=== PATIENT | female | born 1995 | race Caucasian/White ===

== ENCOUNTER 2022-03-19 02:44 | Inpatient (IN) | payer BC ==
[~2022-03-19] VITALS: Ht 167.6 cm; Wt 94.8 kg
[2022-03-19 02:50] VITALS: BP_SYST 137
--- NOTE | 2022-03-19 03:03 | NUR ---
Patient to ER bed 5 to gown for evaluation. Side rails up. Report given to Anna CAST.
--- NOTE | 2022-03-19 03:03 | NUR ---
ER at bedside examining patient.
--- NOTE | 2022-03-19 03:16 | NUR ---
PATIENT MOVED TO BED 1
--- NOTE | 2022-03-19 03:20 | NUR ---
Pt BIBA from home with c/o of vaginal bleeding that started around 0200. Pt is 2 months and had DNC 1 week ago. Pt saturated through 1 pad and 2 chucks on bed. Pt is A&O x4, and following commands.
[2022-03-19] MEDS ORDERED: NACL 0.9% 1,000 ML IV ONE ×3 (03:30→06:45)
--- NOTE | 2022-03-19 03:40 | NUR ---
# 20 gauge angiocath placed to RAC. Use of asceptic technique. Opsite placed over site. Blood return noted. Blood for lab drawn from site. Flushed with 10 cc of normal saline. No evidence of infiltration noted. Patient tolerated well.
--- NOTE | 2022-03-19 04:23 | NUR ---
Dr. Sheets made aware that urine dipstick results are inconclusive. Rec order for UA.
[2022-03-19 04:54] LABS: BASOPHILS # (AUTO) 0.1 K/uL (0.0-0.2); BASOPHILS % (AUTO) 0.6 % (0.0-2.0); EOSINOPHILS # (AUTO) 0.2 K/uL (0.0-0.4); EOSINOPHILS % (AUTO) 2.8 % (0.0-4.0); HEMATOCRIT 30.4 % (36-48); HEMOGLOBIN 10.1 g/dL (12.0-16.0); LYMPHOCYTES # (AUTO) 1.1 K/uL (1.0-5.5); LYMPHOCYTES % (AUTO) 13.3 % (20.5-51.5); MEAN CORPUSCULAR HEMOGLOBIN 30 pg (27-31); MEAN CORPUSCULAR HGB CONC 33 % (32-36); MEAN CORPUSCULAR VOLUME 89 fL (79.0-98.0); MONOCYTES # (AUTO) 0.5 K/uL (0.0-1.0); NEUTROPHILS # (AUTO) 6.3 K/uL (1.8-7.7); NEUTROPHILS % (AUTO) 77.3 % (40.0-70.0); PLATELET COUNT (AUTO) 206 K/uL (130-430); RED BLOOD CELL COUNT(AUTO) 3.42 MIL/uL (4.2-6.2); RED CELL DISTRIBUTION WIDTH 18.3 % (9.0-15.0); WHITE BLOOD COUNT (AUTO) 8.2 K/uL (4.8-10.8)
--- NOTE | 2022-03-19 05:05 | NUR ---
Patient swabbed for Covid 19 and swab sent to lab by BRAXTON Whitlock for analysis
--- NOTE | 2022-03-19 05:06 | NUR ---
Patient swabbed for MRSA by EMT Kamlesh and swab sent to lab for analysis
[2022-03-19 05:12] LABS: BILIRUBIN,URINE NEGATIVE (NEGATIVE); BLOOD, URINE 3+ (NEGATIVE); CLARITY/URINE CLOUDY (CLEAR); COLOR,URINE RED (YELLOW); GLUCOSE,URINE NEGATIVE (NEGATIVE); KETONES,URINE NEGATIVE (NEGATIVE); LEUKOCYTE ESTERASE ,URINE NEGATIVE (NEGATIVE); NITRITE, URINE NEGATIVE (NEGATIVE); PROTEIN URINE 3+ (NEGATIVE); UROBILINOGEN,URINE 0.2 (0.2-1.0)
[2022-03-19 05:14] LABS: CREATININE 1.03 mg/dL (0.55-1.30)
--- NOTE | 2022-03-19 05:16 | NUR ---
Pt reporting abd pain 03/14. BP 130/83. MD made aware.
[2022-03-19 05:18] LABS: ALBUMIN 3.1 g/dL (3.4-4.8); TOTAL BILIRUBIN 1.8 mg/dL (0.0-1.0)
[2022-03-19 05:20] LABS: INR 0.9 (0.8-1.2); PROTHROMBIN TIME 9.9 SECS (9.5-12.5)
[2022-03-19 05:27] LABS: BACTERIA,URINE MODERATE /HPF (None Seen); MUCUS,URINE None Seen /LPF (None Seen)
[2022-03-19] MEDS ORDERED: ONDANSETRON HCL 4 MG/2 ML VIAL IVP ONE (05:30)
[2022-03-19] MEDS ORDERED: MORPHINE 2 MG/ML INJ. SYRINGE IVP ONE (05:30)
--- NOTE | 2022-03-19 05:36 | NUR ---
MD made aware of HR drop from 90bpm to 75bpm. BP 119/67. Second bag of NS bolus hung.
--- NOTE | 2022-03-19 05:39 | NUR ---
Pt reporting some abd discomfort. Pt is A&O X4, and following commands. When asked, patient wished to not change chucks.
--- NOTE | 2022-03-19 06:07 | NUR ---
Pt passed an estimate of 5-6 softball sized blot clots. Dr. Sheets brought to bed side. No new orders rec. Pt still A&O X 4, and following commands. BP 127/76 and HR 88 BMP. Chucks and linens change for patient comfort and hygiene. Pt moved to hospital bed from [facility] for comfort.
[2022-03-19] MEDS ORDERED: ALBMDI INH (06:13)
--- NOTE | 2022-03-19 07:10 | NUR ---
Report given to Yolis CAST to assume all care.
--- NOTE | 2022-03-19 07:26 | NUR ---
RECEIVED PT FROM SERENE LLOYD. PT ADMITTED FOR VAGINAL BLEEDING. PT ACTIVELY BLEEDING AT THIS TIME. INITIAL HGB 10.1, NEWLY DRAWN HGB PENDING. PT IS AAOX4. RESP E/U. ON R/A. ABDOMEN SOFT, ROUND, NONDISTENDED, TENDER. PT HAS C/O PELVIC PAIN 09/12, REFUSED PAIN MEDICATION AT THIS TIME. SKIN WARM, INTACT, CAP REFILL , 3 SECS, NO PERIPHERAL EDEMA. IV CATH TO RAC 20 WNL, S/L. IV CATH 20 TO LAC WITH NS RUNNING AT 100ML/HOURS. SITE WNL. MOTHER AT BEDSIDE, SIDERAILS UP X2.
--- NOTE | 2022-03-19 07:51 | NUR ---
PT HAS C/O INCREASING PAIN 11/12. RECEIVED ORDER FROM DR. LO FOR NORCO 10/325MG PO Q 4 HOURS PRN. ORDER CARRIED OUT.
[2022-03-19] MEDS: HYDROcodone/ACETAMIN 10-325 MG TAB PO PRN ×2 (08:28→21:53)
--- NOTE | 2022-03-19 08:30 | NUR ---
LARGE BLOOD CLOTS: PATIENT PASSED VAGINAL BLOOD CLOTS AND MD INFORMED. Addendum: 03/20/22 at 1704 by Kiersten Steinberg RN CORRECTED ABOVE TIME: CORRECT TIME 1230PM
[2022-03-19 10:30] VITALS: BP_SYST 134
--- NOTE | 2022-03-19 10:30 | NUR ---
ADMISSION NOTE Received patient from ER via gurney. Patient admitted with diagnosis of Vaginal Bleeding. Patient is awake, alert, oriented X 3. Patient oriented to hospital room, call light, toileting, pain management and safety-teach back done. Patient informed that i will be her nurse and that their room number is 110-B. Personal belongings checked and Belongings List documented. Call light within reach.Patient's mother at the bedside.
--- NOTE | 2022-03-19 10:30 | NUR ---
Patient will be admitted to care of GASTONIA. Admitted to MEDICAL SURGICAL unit. Will go to room 110B. Belongings list completed. Complete and up to date summary report printed. SBAR report to be given at bedside with opportunity for questions.
--- NOTE | 2022-03-19 10:42 | NUR ---
RECEIVED ORDER FOR DR. LO FOR SIMETHICONE 180 MG PO BID. CALLED AND REPORTED TO SERENE ONTIVEROS THAT THE MEDICATION IS AVAILABLE.
--- NOTE | 2022-03-19 10:43 | NUR ---
DR BARNES CALLED AND SW DR BARNES RE CONSULTATION. PER HE IS AWARE AND HAS BEEN CALLED FROM THE ED. HE WOILL COME SEE PATIENT
[2022-03-19] MEDS: SIMETHICONE 80 MG TAB.CHEW PO PRN ×2 (11:11→21:51)
[2022-03-19 13:16] LABS: BASOPHILS % (AUTO) 0.4 % (0.0-2.0); LYMPHOCYTES # (AUTO) 0.6 K/uL (1.0-5.5); LYMPHOCYTES % (AUTO) 5.1 % (20.5-51.5); MEAN CORPUSCULAR HEMOGLOBIN 30 pg (27-31); MEAN CORPUSCULAR HGB CONC 33 % (32-36); MEAN CORPUSCULAR VOLUME 89 fL (79.0-98.0); MONOCYTES # (AUTO) 0.7 K/uL (0.0-1.0); MONOCYTES % (AUTO) 5.3 % (1.7-9.3); NEUTROPHILS # (AUTO) 10.9 K/uL (1.8-7.7); NEUTROPHILS % (AUTO) 89.2 % (40.0-70.0); PLATELET COUNT (AUTO) 237 K/uL (130-430); RED BLOOD CELL COUNT(AUTO) 2.15 MIL/uL (4.2-6.2); RED CELL DISTRIBUTION WIDTH 18.1 % (9.0-15.0); WHITE BLOOD COUNT (AUTO) 12.2 K/uL (4.8-10.8)
--- NOTE | 2022-03-19 13:30 | NUR ---
OB GYNE: DR BARNES DID AN INTERNAL EXAMINATION AT THE BEDSIDE AND AN EVACUATION OF LARGE BLOOD CLOTS OBTAINED. NO BLEEDING AFTERWARDS.
[2022-03-19 13:36] LABS: HEMOGLOBIN 6.3 g/dL (12.0-16.0)
[2022-03-19 13:37] LABS: HEMATOCRIT 19.2 % (36-48)
[2022-03-19 14:30] LABS: HEMOGLOBIN 10.2 g/dL (12.0-16.0); MEAN CORPUSCULAR HEMOGLOBIN 30 pg (27-31); MEAN CORPUSCULAR HGB CONC 33 % (32-36); PLATELET COUNT (AUTO) 211 K/uL (130-430); RED BLOOD CELL COUNT(AUTO) 3.38 MIL/uL (4.2-6.2); RED CELL DISTRIBUTION WIDTH 18.6 % (9.0-15.0)
[2022-03-19 14:41] LABS: MEAN CORPUSCULAR VOLUME 92 fL (79.0-98.0)
--- NOTE | 2022-03-19 14:55 | NUR ---
BT INITIATION: Consent signed per agreeing to administration of blood. Blood has been type and crossmatched. Blood sent from blood bank. Information on unit of blood checked against patient wristband at bedside by two nurses. All information matches. Patient or responsible green party informed of potential complications associated with blood transfusion. Informed of possible transfusion reaction symptoms. Aware of need to notify nurse at once of itching, shortness of breath, flushing, feeling of impending doom, or other symptoms not previously present. Vital signs taken within 5 minutes prior to initiation of transfusion. RN will remain with patient for first 15 minutes of transfusion at which time vital signs will be re-assessed.
[2022-03-19 17:20] VITALS: BP_SYST 135
--- NOTE | 2022-03-19 17:20 | NUR ---
2ND TRANSFUSION:BT INITIATION: Consent signed per pt agreeing to administration of blood. Blood has been type and crossmatched. Blood sent from blood bank. Information on unit of blood checked against patient wristband at bedside by two nurses. All information matches. Patient or responsible constitution party informed of potential complications associated with blood transfusion. Informed of possible transfusion reaction symptoms. Aware of need to notify nurse at once of itching, shortness of breath, flushing, feeling of impending doom, or other symptoms not previously present. Vital signs taken within 5 minutes prior to initiation of transfusion. RN will remain with patient for first 15 minutes of transfusion at which time vital signs will be re-assessed.
--- NOTE | 2022-03-19 19:27 | NUR ---
END OF SHIFT: 2ND UNIT OF PRBC ALMOST DONE. ENDORSED [facility] NURSE MARGE.PATIENT SLEEPING.CALL LIGHT WITH IN REACH. BED LOCKED AT LOWEST POSITION. CONTINUE TO MONITOR ACTIVE BLEEDING. STABLE.
[2022-03-19 20:00] VITALS: BP_SYST 127
--- NOTE | 2022-03-19 20:15 | NUR ---
PRBC TRANSFUSION COMPLETE. VS AT 2010: 97.6,127,20,127/82, AND 98% O2 SAT ON ROOM AIR. PT CONDITION STABLE.
[2022-03-20 00:30] VITALS: BP_SYST 128
--- NOTE | 2022-03-20 07:35 | NUR ---
MORNING ROUNDS: PATIENT AWAKE LYING ON THE BED. MOTHER AT THE BEDSIDE. IV SALINE LOCK AT BOTH AC,INTACT. CALL LIGHT WITH IN REACH. BED LOCKED AT LOWEST POSITION. NO ACTIVE BLEEDING THIS TIME.
[2022-03-20 07:56] LABS: BASOPHILS % (AUTO) 0.7 % (0.0-2.0); EOSINOPHILS # (AUTO) 0.2 K/uL (0.0-0.4); LYMPHOCYTES % (AUTO) 17.6 % (20.5-51.5); MEAN CORPUSCULAR HEMOGLOBIN 30 pg (27-31); MEAN CORPUSCULAR HGB CONC 34 % (32-36); MEAN CORPUSCULAR VOLUME 88 fL (79.0-98.0); MONOCYTES # (AUTO) 0.5 K/uL (0.0-1.0); MONOCYTES % (AUTO) 8.3 % (1.7-9.3); NEUTROPHILS % (AUTO) 70.4 % (40.0-70.0); PLATELET COUNT (AUTO) 143 K/uL (130-430); RED BLOOD CELL COUNT(AUTO) 2.21 MIL/uL (4.2-6.2); WHITE BLOOD COUNT (AUTO) 5.6 K/uL (4.8-10.8)
[2022-03-20 08:00] VITALS: BP_SYST 128
[2022-03-20 08:30] LABS: ALBUMIN 2.5 g/dL (3.4-4.8); CALCIUM 8.1 mg/dL (8.4-11.0); CREATININE 0.76 mg/dL (0.55-1.30); TOTAL BILIRUBIN 1.9 mg/dL (0.0-1.0)
[2022-03-20] MEDS: HYDROcodone/ACETAMIN 10-325 MG TAB PO PRN (08:46)
[2022-03-20] MEDS: SIMETHICONE 80 MG TAB.CHEW PO PRN ×2 (08:46→21:48)
[2022-03-20 10:01] LABS: HEMATOCRIT 19.3 % (36-48); HEMOGLOBIN 6.6 g/dL (12.0-16.0)
--- NOTE | 2022-03-20 10:13 | NUR ---
Paged: Spoke with Dr. Gale,with orders repeat h&h after 6hours drawn from am labs.Start LR at 150cc/h.
[2022-03-20] MEDS: LR 1,000 ML IV SCH ×3 (11:18→21:49)
[2022-03-20 12:30] VITALS: BP_SYST 117
--- NOTE | 2022-03-20 13:30 | NUR ---
TRIXIE MICHAEL: DR BARNES CAME AND DID VAGINAL EVACUATION OF LARGE CLOTS, DONE AT THE BEDSIDE. Addendum: 03/20/22 at 1657 by Kiersten Steinberg RN CORRECTED ABOVE TIME.DISREGARD ABOVE NOTES.
--- NOTE | 2022-03-20 14:30 | NUR ---
WITH VISITOR: WITH FAMILY AT THE BEDSIDE. NOT IN ANY DISTRESS.
[2022-03-20 15:08] LABS: HEMOGLOBIN 5.8 g/dL (12.0-16.0)
[2022-03-20 15:09] LABS: HEMATOCRIT 16.9 % (36-48)
[2022-03-20 16:00] VITALS: BP_SYST 133
--- NOTE | 2022-03-20 16:00 | NUR ---
PT/FAMILY UPDATE: INFORMED THE PATIENT AND MOTHER THE RESULTS OF HEMOGLOBIN AND HEMATOCRIT.WITH ORDERS TYPE ANS SCREEN 2 UNITS OF PRBC AND TRANSFUSED ORDERED BY .
--- NOTE | 2022-03-20 17:00 | NUR ---
PAD CHANGE: PERINEAL CARE RENDERED. VOIDED IN LARGE AMOUNT VIA BED CARRILLO.MINIMAL BLOOD SPOT IN THE PAD X1. NO ACTIVE BLEEDING THIS TIME.
--- NOTE | 2022-03-20 17:45 | NUR ---
BT INITIATION: Consent signed per patient agreeing to administration of blood. Blood has been type and crossmatched. Blood sent from blood bank. Information on unit of blood checked against patient wristband at bedside by two nurses. All information matches. Patient or responsible constitution party informed of potential complications associated with blood transfusion. Informed of possible transfusion reaction symptoms. Aware of need to notify nurse at once of itching, shortness of breath, flushing, feeling of impending doom, or other symptoms not previously present. Vital signs taken within 5 minutes prior to initiation of transfusion. RN will remain with patient for first 15 minutes of transfusion at which time vital signs will be re-assessed.
--- NOTE | 2022-03-20 18:44 | NUR ---
EVENING ROUNDS: PATIENT EATING DINNER SLOWLY. MOTHER AT THE BEDSIDE. BLOOD ON GOING.NO PROBLEM. CALL LIGHT WITH IN REACH. BED LOCKED AT LOWEST POSITION. NO ACTIVE BLEEDING NOTED.
--- NOTE | 2022-03-20 19:30 | NUR ---
OPENING NOTES: Patient received from AM shift nurse. Patient is AA&Ox4 able to make needs known with mother at bed side. Patient denies any pain or distress at this time. Chest rise is even and unlabored on RA and patient is on Med-Surg monitoring. Patient is noted to be receiving blood on the RAC and end time for the infusion has been reported to be before 2029. Patient is tolerating the infusion well and no adverse effects is noted at this time. Patient has been ordered 2 units of PRBC and first bag is infusing. Patient is stable at this time and will resume care. Safety measures are in place as per protocol and patient has call light within reach. Will continue to monitor throughout the shift.
[2022-03-20 20:00] VITALS: BP_SYST 139
--- NOTE | 2022-03-20 20:30 | NUR ---
BLOOD TRANSFUSION COMPLETE. Patient completed first unit of PRBC as per order. No adverse reaction is noted at this time. V/S are within normal range and are noted on chart. Will continue to monitor.
--- NOTE | 2022-03-20 22:50 | NUR ---
BLOOD TRANSFUSION STARTED: Send unit of PRBC started at 2232. Two nurse verification completed at bedside as per protocol and patient V/S are WNL and noted on sheet and and patient chart. Patient is tolerating the blood well and 15min V/S have also been completed. Will continue to monitor.
[2022-03-21 00:30] VITALS: BP_SYST 128
--- NOTE | 2022-03-21 00:30 | NUR ---
ROUNDS: Rounds completed. Patient was placed on bed time and neil care was provided. V/S were taken and were noted WNL. Blood transfusion is still infusing at this time and patient continue to tolerate it well. No s/s of distress is noted at this time. Will continue to monitor.
--- NOTE | 2022-03-21 01:15 | NUR ---
BLOOD TRANSFUSION COMPLETE. 2 out of 2 units of PRBC have been completed as per order and patient tolerated it well. V/S are noted to be WNL. Will continue to monitor.
[2022-03-21] MEDS: LR 1,000 ML IV SCH ×3 (06:15→22:26)
--- NOTE | 2022-03-21 07:00 | NUR ---
CLOSING NOTES: Patient is in bed resting no s/s of distress is noted at this time. Patient is AA&Ox4 and is able to make needs known with family at bedside, denies any pain or discomfort at this time. Patient received 2 units of PRBC and tolerated it well. Patient is stable at this time and all current shift needs have been met at this time. Will differ care to AM shift for continuity of care.
[2022-03-21 07:55] LABS: BASOPHILS % (AUTO) 0.4 % (0.0-2.0); EOSINOPHILS # (AUTO) 0.2 K/uL (0.0-0.4); EOSINOPHILS % (AUTO) 3.9 % (0.0-4.0); HEMATOCRIT 24.3 % (36-48); HEMOGLOBIN 8.4 g/dL (12.0-16.0); LYMPHOCYTES # (AUTO) 0.7 K/uL (1.0-5.5); LYMPHOCYTES % (AUTO) 15.1 % (20.5-51.5); MEAN CORPUSCULAR HEMOGLOBIN 30 pg (27-31); MEAN CORPUSCULAR HGB CONC 35 % (32-36); MEAN CORPUSCULAR VOLUME 87 fL (79.0-98.0); MONOCYTES # (AUTO) 0.4 K/uL (0.0-1.0); MONOCYTES % (AUTO) 8.4 % (1.7-9.3); NEUTROPHILS # (AUTO) 3.5 K/uL (1.8-7.7); NEUTROPHILS % (AUTO) 72.2 % (40.0-70.0); PLATELET COUNT (AUTO) 111 K/uL (130-430); RED BLOOD CELL COUNT(AUTO) 2.81 MIL/uL (4.2-6.2); RED CELL DISTRIBUTION WIDTH 16.1 % (9.0-15.0); RETICULOCYTE COUNT 7.1 % (0.5-1.5); WHITE BLOOD COUNT (AUTO) 4.8 K/uL (4.8-10.8)
[2022-03-21 08:00] VITALS: BP_SYST 133
[2022-03-21 08:26] LABS: TOTAL IRON BIND. CAPACITY 222 ug/dL (250-450)
[2022-03-21 08:28] LABS: BILIRUBIN,DIRECT 0.3 mg/dL (0.0-0.3)
[2022-03-21] MEDS: SIMETHICONE 80 MG TAB.CHEW PO PRN ×2 (09:36→22:20)
[2022-03-21 11:15] VITALS: BP_SYST 130
[2022-03-21 15:20] VITALS: BP_SYST 116
[2022-03-21 15:30] LABS: RBC,URINE >100 /HPF (0-3)
--- NOTE | 2022-03-21 16:35 | NUR ---
CONSULTATION PAGED REASON FOR CONSULTATION DEPRESSION/ANXIETY WAS CONSULT CALED?Y PERSON WHO WAS NOTIFIED:SO CONSULTING PHYSICIAN:CIERRA HUERTAS ELECTROENCEPHALOGRAPH TECHNICIAN SPECIALTY:PSYCHE ELECTROENCEPHALOGRAPH TECHNICIAN PHONE NUMBER:[phone] REQUESTING PHYSICIAN:JONN KELLY
--- NOTE | 2022-03-21 18:30 | NUR ---
Miss Brasher has been assessed as indicated. She continues to deny pain. She was able to ambulate to the restroom with assistance. She was very concerned that there would be a large discharge of vaginal bleeding if she attempted to ambulate. There has been only scant blood on the toilet tissue after she voids. Her pads have remained cleaned. Her mother has been at the bedside most of this shift. she has been visited by her as well as other friends. She was seen by Veronika reyna L&D nurse to discuss a plan. She had intended to stop nursing but will try to increase her milk output by regularly using the breast pump that she has at the bedside. She has had labs drawn and is away at a CT scan at this time
--- NOTE | 2022-03-21 19:30 | NUR ---
Handoff has been given to Viktoria
[2022-03-21 20:00] VITALS: BP_SYST 146
[2022-03-22 06:52] LABS: BASOPHILS % (AUTO) 0.7 % (0.0-2.0); EOSINOPHILS # (AUTO) 0.2 K/uL (0.0-0.4); EOSINOPHILS % (AUTO) 3.9 % (0.0-4.0); HEMATOCRIT 25.7 % (36-48); HEMOGLOBIN 8.7 g/dL (12.0-16.0); LYMPHOCYTES # (AUTO) 0.9 K/uL (1.0-5.5); LYMPHOCYTES % (AUTO) 20.9 % (20.5-51.5); MEAN CORPUSCULAR HEMOGLOBIN 30 pg (27-31); MEAN CORPUSCULAR HGB CONC 34 % (32-36); MEAN CORPUSCULAR VOLUME 88 fL (79.0-98.0); MONOCYTES # (AUTO) 0.3 K/uL (0.0-1.0); NEUTROPHILS # (AUTO) 2.8 K/uL (1.8-7.7); NEUTROPHILS % (AUTO) 67.5 % (40.0-70.0); PLATELET COUNT (AUTO) 124 K/uL (130-430); RED BLOOD CELL COUNT(AUTO) 2.91 MIL/uL (4.2-6.2); RED CELL DISTRIBUTION WIDTH 16.5 % (9.0-15.0); WHITE BLOOD COUNT (AUTO) 4.2 K/uL (4.8-10.8)
--- NOTE | 2022-03-22 07:10 | NUR ---
OPENING RECEIVED SBAR FROM NIGHT NURSE,PATIENT IS IN BED WITH EYES CLOSED, RESPIRATIONS ARE EVEN AND NON LABORED, BED IS LOW AND LOCKED, IV RUNNING ORDERED, CALL LIGHT WITHIN REACH
[2022-03-22 08:00] VITALS: BP_SYST 131
[2022-03-22] MEDS: SIMETHICONE 80 MG TAB.CHEW PO PRN ×2 (09:48→20:15)
[2022-03-22] MEDS: LR 1,000 ML IV SCH ×5 (09:57→21:10)
--- NOTE | 2022-03-22 10:49 | NUR ---
PREDNISONE SPOKE WITH MCKINLEY FROM DR PATEL INFORMED PATIENT WAS TAKING PEDNISONE 10 MG 3X DAY
--- NOTE | 2022-03-22 12:30 | NUR ---
SHOWER ASSISTED PATIENT WITH SHOWER AND ADL'S. NO BLEEDING. CHANGED LINENS AND GOWN. RETURNED TO BED. PATIENT DENIES ANY PAIN OR DISCOMFOR.
[2022-03-22 13:07] LABS: FOLATE (FOLIC ACID) 16.4 ng/mL (>3.0)
--- NOTE | 2022-03-22 13:19 | NUR ---
SPOKE TO DR MANCILLA, INFORMED HIM THAT DR REECE WANTED TO TALK TO HIM,PROVIDED TEL NO. [phone]
--- NOTE | 2022-03-22 14:00 | NUR ---
family took patient via wheel chair to quiet room to visit with daughter. denies any pain or discomfort, father, mother, in law present with daughter.
--- NOTE | 2022-03-22 14:30 | NUR ---
nurse note patient sitting in wheel chair, denies any pain or discomfort, family visiting with patient in quiet room
[2022-03-22 14:53] LABS: BILIRUBIN,DIRECT 0.3 mg/dL (0.0-0.3)
--- NOTE | 2022-03-22 15:00 | NUR ---
nurse note patient returned to room via wheel chair. assisted back to bed, attached to IVF's patient denies any pain or discomfort
[2022-03-22 16:00] VITALS: BP_SYST 138
--- NOTE | 2022-03-22 17:57 | NUR ---
SPOKE WITH DR BARNES HE IS PLANNING ON DOING A UTERINE ARTERY EMBOLIZATION ON THE PATIENT. PATIENT WILL NEED TO BE DC FROM HERE AND SHE WILL TAKE SELF TO [facility]. DR BARNES WILL BE IN TO SEE THE PATIENT THIS EVENING TO INFORM PATIENT OF THE PLAN.
--- NOTE | 2022-03-22 19:23 | NUR ---
CLOSING PROVIDED SBAR TO NIGHT RN, PATIENT IS SITTING IN BED, RESPIRATIONS EVEN AND NON LABORED, BED LOW AND LOCKED, IV RUNNING ORDERED, FAMILY AT BEDSIDE
--- NOTE | 2022-03-22 20:30 | NUR ---
Dr. Gale at bedside speaking with pt and pt family
[2022-03-22 20:54] VITALS: BP_SYST 125
[2022-03-23 00:51] VITALS: BP_SYST 138
[2022-03-23] MEDS: LR 1,000 ML IV SCH ×3 (05:08→18:30)
[2022-03-23 06:54] LABS: BASOPHILS % (AUTO) 0.7 % (0.0-2.0); EOSINOPHILS # (AUTO) 0.2 K/uL (0.0-0.4); HEMATOCRIT 24.9 % (36-48); HEMOGLOBIN 8.2 g/dL (12.0-16.0); LYMPHOCYTES % (AUTO) 20.7 % (20.5-51.5); MEAN CORPUSCULAR HEMOGLOBIN 29 pg (27-31); MEAN CORPUSCULAR HGB CONC 33 % (32-36); MEAN CORPUSCULAR VOLUME 89 fL (79.0-98.0); MONOCYTES # (AUTO) 0.3 K/uL (0.0-1.0); MONOCYTES % (AUTO) 6.2 % (1.7-9.3); NEUTROPHILS # (AUTO) 3.3 K/uL (1.8-7.7); NEUTROPHILS % (AUTO) 68.4 % (40.0-70.0); PLATELET COUNT (AUTO) 143 K/uL (130-430); RED BLOOD CELL COUNT(AUTO) 2.79 MIL/uL (4.2-6.2); RED CELL DISTRIBUTION WIDTH 17.3 % (9.0-15.0); WHITE BLOOD COUNT (AUTO) 4.8 K/uL (4.8-10.8)
--- NOTE | 2022-03-23 06:57 | NUR ---
pt currently asleep in bed. All needs meet at this time. Pt denied any pain at this time. will endorse care to day rn.
[2022-03-23 07:00] LABS: CALCIUM 8.6 mg/dL (8.4-11.0); CREATININE 0.63 mg/dL (0.55-1.30)
[2022-03-23 08:15] VITALS: BP_SYST 139
--- NOTE | 2022-03-23 08:15 | NUR ---
INITIAL ROUNDS Received pt AAOx4, no s/s resp distress, no c/o lightheadedness, no c/o pain or discomfort. Pt's mother at bedside. Plan of care for the day reviewed with pt-pt verbalized her understanding. Per pt Dr. Gale stated to stop IVF. Pain management, skin and safety discussed-teach back done. Call light within reach.
[2022-03-23] MEDS: FOLIC ACID 1 MG TABLET PO SCH ×2 (09:00→10:37)
--- NOTE | 2022-03-23 09:30 | NUR ---
MD Dr. Gale called and stated that the pt needs to go to [facility] for Interventional Radiology Uterine Artery Embolization with Dr. Reese Brooks. He stated to obtain discharge order and for the pt to go to [facility] through the ER. Call placed to Dr. Roldan, awaiting call back.
--- NOTE | 2022-03-23 11:05 | NUR ---
DCP Spoke with Dr. Roldan and informed of need for Interventional Radiology for Uterine Artery Embolization and that Dr. Gale arranged for the procedure with a DR. Reese Ortega at [facility]. DCP order placed.
[2022-03-23 12:31] VITALS: BP_SYST 137
--- NOTE | 2022-03-23 16:00 | NUR ---
CM: late entry: CM faxed and spoke with julio Hatfield /[facility] stated that the pt is capitated with [place] or [facility] ([facility] and [facility]) YARELIS Fam is not in network. He also requested if pt can have the procedure as outpatient which I notified Dr Gale he agreed with the discharge once the outpatient appointment is set up. The order faxed to [facility] this pm. I will f/u with the appointment in am.
[2022-03-23 16:02] VITALS: BP_SYST 138
--- NOTE | 2022-03-23 16:35 | NUR ---
BLOOD CLOTS Pt went to restroom and had dark red blood clots-about the size of a small woman's fist, pt stated she has had much bigger before.
--- NOTE | 2022-03-23 18:42 | NUR ---
CLOSING NOTE Pt resting quietly in bed with no s/s resp distress, no c/o pain or discomfort. Pt's mother remains at bedside. Pt assisted to the restroom and no clots. Needs met, call light within reach.
[2022-03-23 20:30] VITALS: BP_SYST 134
[2022-03-23] MEDS: SIMETHICONE 80 MG TAB.CHEW PO PRN (21:26)
[2022-03-24 00:15] VITALS: BP_SYST 141
[2022-03-24] MEDS: LR 1,000 ML IV SCH ×4 (00:16→19:55)
[2022-03-24 07:40] VITALS: BP_SYST 125
--- NOTE | 2022-03-24 07:40 | NUR ---
OPENING NOTE Patient resting in bed. A/Ox 4 Cook Islander speaking. No pain, no SOB, no distress noted at this time. Patient possibly transferred to [facility] for Uterine artery embolization procedure. IV to LAC 20 g patent and on SL. All needs met at this time, bed is locked in lowest position, will continue to monitor.
[2022-03-24] MEDS: FOLIC ACID 1 MG TABLET PO SCH (08:34)
[2022-03-24 12:10] VITALS: BP_SYST 120
--- NOTE | 2022-03-24 12:10 | NUR ---
Patient Rounds Patient resting in bed. No pain, no SOB, no distress noted at this time. IV to LAC 20 g patent and on SL. All needs met at this time, bed is locked in lowest position, will continue to monitor.
--- NOTE | 2022-03-24 15:00 | NUR ---
CM: late entry: f/u x2 ,the out patient appoint with [facility], " does not have the md set up yet per Liu, he will call back with update".Patient and mother made aware.
[2022-03-24 16:10] VITALS: BP_SYST 132
--- NOTE | 2022-03-24 18:50 | NUR ---
CLOSING NOTE Patient resting in bed. A/Ox 4 Nepalese speaking. No pain, no SOB, no distress noted at this time. IV to LAC 20 g patent and on SL. All needs met at this time, bed is locked in lowest position, will endorse to nightshift nurse.
[2022-03-24 20:10] VITALS: BP_SYST 140
--- NOTE | 2022-03-24 23:00 | NUR ---
PT MOM AT BEDSIDE. PT MOM UPDATED ON PLAN OF CARE AND DC PLAN. ALL QUESTIONS ANSWERED
[2022-03-25 00:59] VITALS: BP_SYST 131
[2022-03-25] MEDS: LR 1,000 ML IV SCH ×3 (03:50→17:47)
--- NOTE | 2022-03-25 06:56 | NUR ---
PT CURRENTLY ASLEEP. PT DOES NOT APPEAR TO BE IN PAIN AT THIS TIME. PT HAD MINIMAL SPOTTING DURING SHIFT
[2022-03-25 07:02] LABS: BASOPHILS % (AUTO) 0.5 % (0.0-2.0); EOSINOPHILS # (AUTO) 0.2 K/uL (0.0-0.4); EOSINOPHILS % (AUTO) 4.9 % (0.0-4.0); HEMATOCRIT 24.8 % (36-48); HEMOGLOBIN 8.4 g/dL (12.0-16.0); LYMPHOCYTES # (AUTO) 1.1 K/uL (1.0-5.5); LYMPHOCYTES % (AUTO) 21.2 % (20.5-51.5); MEAN CORPUSCULAR HEMOGLOBIN 31 pg (27-31); MEAN CORPUSCULAR HGB CONC 34 % (32-36); MEAN CORPUSCULAR VOLUME 90 fL (79.0-98.0); MONOCYTES # (AUTO) 0.4 K/uL (0.0-1.0); MONOCYTES % (AUTO) 7.5 % (1.7-9.3); NEUTROPHILS # (AUTO) 3.3 K/uL (1.8-7.7); NEUTROPHILS % (AUTO) 65.9 % (40.0-70.0); PLATELET COUNT (AUTO) 163 K/uL (130-430); RED BLOOD CELL COUNT(AUTO) 2.75 MIL/uL (4.2-6.2); RED CELL DISTRIBUTION WIDTH 18.8 % (9.0-15.0)
--- NOTE | 2022-03-25 07:21 | NUR ---
receive the patient from the teacher of the handicapped rn Nadir in a stable condition with admitting diagnosis of vaginal bleeding aox4 . no complain of pain at this time . no sign and symptoms of respiratory distress . will continue to monitor .
[2022-03-25 07:35] LABS: BILIRUBIN,DIRECT 0.4 mg/dL (0.0-0.3)
--- NOTE | 2022-03-25 08:56 | NUR ---
chano complain of more bleeding . 2 pads of bleeding was noted . will report to ob gyne
[2022-03-25] MEDS: FOLIC ACID 1 MG TABLET PO SCH (09:08)
[2022-03-25] MEDS: HYDROcodone/ACETAMIN 10-325 MG TAB PO PRN (09:09)
--- NOTE | 2022-03-25 11:32 | NUR ---
CM: f/u out patient appointment : LVM to [facility] at 0830 and 1110 another informed the started bleeding again . The pt will need to transfer to [facility] for the IR procedure. 1130: Call back from Liu, said " his corporate tax manager is working on the OCTAVIA ( signed agreement from at [facility] ) he will call back once has more info from his corporate tax manager. He aware that I requested pt transfer to [facility] michael. Addendum: 03/25/22 at 1538 by Jay Mcdonald RN 1330:Called Liu again, he said per his boss 's note: arranged for pt going to [facility] , with dr. Aaron Barragan, IR. no admission time and date, said the pt can be discharged today. I informed him again that the pt continues bleeding , it is best to transfer pt to acute hospital, instead of getting the outpatient appointment. Our doctor will not discharge pt to home and have her going through the admission process at [facility]. The patient already had bad experience when was discharged from [facility] and never get the f/u outpatient appointment. The pt does not want transfer to [facility] either. Liu said he will talk to his boss again. -- Patient and mother made aware.
[2022-03-25 11:38] VITALS: BP_SYST 115
--- NOTE | 2022-03-25 13:54 | NUR ---
md alcantar the ob gyne order the patient to be npo for further procedure . also hemoglobin thru cbc stat . noted and carried out
[2022-03-25] MEDS ORDERED: CYANOCOBALAMIN 1000 MCG/ML VIAL IM ONE (14:45)
--- NOTE | 2022-03-25 15:20 | NUR ---
Jay clinical case manager for the patient finally was able to get from the insurance the accepting hospital which is [facility] [phone] .
--- NOTE | 2022-03-25 16:29 | NUR ---
Transfer to higher level of care: faxed the order to [facility] fax # [phone], direct line [phone]. He is not sure whether the pt can be transferred dt no cm on weekend, said only case reviewer for ER admission. He will talk to his boss to help expedite the transfer during the weekend, after hour # [phone], opt 1. -- GORDO Navas , RN Lloyd made aware.
[2022-03-25 16:48] VITALS: BP_SYST 129
--- NOTE | 2022-03-25 16:52 | NUR ---
Transfer: Per Liu, to fax the referral package to [facility] Transfer ctr fax# [phone], tel # [phone]. I requested to transfer ctr to call nursing unit back with bed assignment and ambulance pickling solution maker time. -- GORDO Navas and SERENE Desai made aware.
[2022-03-25 16:57] LABS: BASOPHILS % (AUTO) 0.7 % (0.0-2.0); EOSINOPHILS # (AUTO) 0.2 K/uL (0.0-0.4); EOSINOPHILS % (AUTO) 5.2 % (0.0-4.0); HEMATOCRIT 23.9 % (36-48); LYMPHOCYTES # (AUTO) 1.1 K/uL (1.0-5.5); LYMPHOCYTES % (AUTO) 24.9 % (20.5-51.5); MEAN CORPUSCULAR HEMOGLOBIN 30 pg (27-31); MEAN CORPUSCULAR HGB CONC 34 % (32-36); MEAN CORPUSCULAR VOLUME 90 fL (79.0-98.0); MONOCYTES # (AUTO) 0.3 K/uL (0.0-1.0); MONOCYTES % (AUTO) 7.2 % (1.7-9.3); NEUTROPHILS # (AUTO) 2.8 K/uL (1.8-7.7); PLATELET COUNT (AUTO) 171 K/uL (130-430); RED BLOOD CELL COUNT(AUTO) 2.64 MIL/uL (4.2-6.2); RED CELL DISTRIBUTION WIDTH 19.4 % (9.0-15.0); WHITE BLOOD COUNT (AUTO) 4.6 K/uL (4.8-10.8)
[2022-03-25 17:06] LABS: BILIRUBIN,DIRECT 0.4 mg/dL (0.0-0.3)
--- NOTE | 2022-03-25 17:24 | NUR ---
Higher Level of care: Ines VILLA /[facility] is working on the transfer this weekend. Please call her # [phone] to f/u the transfer process.
--- NOTE | 2022-03-25 17:30 | NUR ---
gave report to Stephanie the admitting nurse of [facility] . Addendum: 03/25/22 at 1852 by [facility] Three SERENE Medellin RN wrong patient
--- NOTE | 2022-03-25 18:11 | NUR ---
will endorse to manager investigations rn for continuity of care
--- NOTE | 2022-03-25 18:45 | NUR ---
was machine operator picker by the ambulance in a stable condition Addendum: 03/25/22 at 1847 by [facility] Three RegistrySERENE RN wrong patient
[2022-03-25 19:40] VITALS: BP_SYST 123
--- NOTE | 2022-03-25 19:40 | NUR ---
PM ASSESSMENT; -Pt is a/ox4, resting in bed. pt denies any chest pain,pain,sob, or any acute distress. IV site LAC patent, no s/s any infiltration noted. IVF LR @ 125ml/hr. Pt is active bleeding vagina. Discussed poc,all safety measures, not to get OOB to use call light for assistance or if experiencing any acute distress or pain, pt and mom verbalized understanding. fall precaution in place, side rails x2,call light w/in reach. Cont to monitor pt.
[2022-03-25 21:30] VITALS: BP_SYST 83
[2022-03-25 22:30] VITALS: BP_SYST 121
--- NOTE | 2022-03-25 22:30 | NUR ---
NOTES; NOTIFIED DR. BARNES REGARDING PT IS BLEEDING HEAVILY MULTIPLE TIMES PRIOR HIS ROUNDS VS 96.8, 22, 129, 97% R/A, 138/84. WAITING FOR MD TO RETURN CALLBACK.
--- NOTE | 2022-03-25 22:34 | NUR ---
CALLED [facility] AND [facility] AND SHE SAID THERE IS NO BED REQUEST IN THERE SYSTEM WHEN I WAS REQUESTING FOR BED UPDATE . SHE SAID OF THIS MOMENT THEY HAVE NO MED SURG BEDS Addendum: 03/25/22 at 2237 by Keya Mathis CNA CALLED [phone]
--- NOTE | 2022-03-25 22:38 | NUR ---
NOTES; NOTIFIED DR. BARNES REGARDING PT IS BLEEDING HEAVILY MULTIPLE TIMES PRIOR HIS ROUNDS VS 96.8, 22, 129, 97% R/A, 138/84 AND MOTHER AND PT ARE VERY ANXIOUS AND CAN ORDER CBC AND ORDER TO HIGH LEVEL OF CARE. DR. BARNES STATED," CALL THE PRIMARY MD REGARDING THIS MATTER." WILL PAGE DR. LO Addendum: 03/25/22 at 2335 by [facility], SERENE CAST NOTES; CORRECTION-PAGED ; NOT NOTIFIED YET
--- NOTE | 2022-03-25 22:40 | NUR ---
NOTES; CALLED CELLPHONE ([phone]) OF DR. LO, MAILBOX FULLED AND CAN'T LEAVE MESSAGE. PAGED BODY DESIGN CHECKER (LONI) OF DR. LO ([phone]) REGARDING HEAVILY BLEEDING OF VAGINAL MULTIPLE TIMES AND NEED AN ORDER TO BE HIGH LEVEL OF CARE, PT IS ANXIOUS AND SO DOES HER MOTHER. WAITING FOR MD TO RETURN CALL BACK.
--- NOTE | 2022-03-25 22:59 | NUR ---
NOTES; -PT IS SWEATING AND PT STATED," I CAN'T BREATHE." PLACED OXY 2L NOW. WAITING FOR MD TO RETURN CALLBACK.
--- NOTE | 2022-03-25 23:02 | NUR ---
NOTES; SPOKE WITH DR. BARNES REGARDING PT IS STILL ACTIVE HEAVILY BLEEDING AND HER MOTHER IS ASKING TO ANOTHER LAB WORK ON HER DAUGHTER AND TO BE TRANSFER BLOOD AND COULDN'T GET A HOLD MULTIPLE TIMES OF DR. LO AND CELLPHONE MAILBOX FULLED AND BP=80/46,96.0, 129, 96.0, 100% 2L n/C OXY. JUST ORDER CBC STAT AND CALL PRIMARY MD FOR FURTHER ORDER PER DR. BARNES. Addendum: 03/26/22 at 0340 by [facility], SERENE CAST CORRECTION- TRANSFUSE NOT TRANSFER BLOOD
--- NOTE | 2022-03-25 23:14 | NUR ---
NOTES; SPOKE WITH DR. LO REGARDING PT IS NOW ACTIVE BLEEDING HEAVILY MULTIPLE TIMES SINCE PERFORMANCE ARCHITECT AND CALLED SALES OUTFITTER TEAM ARRIVED AT BEDSIDE, BP=80/46, 100% 2L N/C OXY, 129. PT IS DIAPHESIS AND ICU NURSE INSERTED NEW IV SITE OF RAC #18, PATENT, FLUSHED WELL,GOOD BLOOD RETURNS NOTED. TRANSFER PT TO ICU UNIT NOW PER .
--- NOTE | 2022-03-25 23:19 | NUR ---
NOTES; TRANSFERRED PT TO ICU BED 6 NOW -WILL GIVE A REPORT TO ICU NURSE AT BEDSIDE.
--- NOTE | 2022-03-25 23:22 | NUR ---
ENDORSED TO ANGEL-ICU NURSE AT ICU UNIT TO CONT CARE
--- NOTE | 2022-03-25 23:25 | NUR ---
Received patient transferred from Telemetry unit after rapid response. Via bed to room 6. Patient awake, O2 2L NC, no signs of respiratory distress. Pale skin noted. Blood pressure dropping 83/43, Albumin started. Dr Roldan to be contacted. will continue to monitor.
[2022-03-25 23:33] LABS: BASOPHILS # (AUTO) 0.1 K/uL (0.0-0.2); EOSINOPHILS # (AUTO) 0.4 K/uL (0.0-0.4); EOSINOPHILS % (AUTO) 4.4 % (0.0-4.0); HEMOGLOBIN 7.7 g/dL (12.0-16.0); LYMPHOCYTES # (AUTO) 2.1 K/uL (1.0-5.5); LYMPHOCYTES % (AUTO) 25.1 % (20.5-51.5); MEAN CORPUSCULAR HEMOGLOBIN 31 pg (27-31); MEAN CORPUSCULAR HGB CONC 34 % (32-36); MEAN CORPUSCULAR VOLUME 92 fL (79.0-98.0); MONOCYTES # (AUTO) 0.6 K/uL (0.0-1.0); MONOCYTES % (AUTO) 7.5 % (1.7-9.3); NEUTROPHILS # (AUTO) 5.2 K/uL (1.8-7.7); PLATELET COUNT (AUTO) 291 K/uL (130-430); RED BLOOD CELL COUNT(AUTO) 2.46 MIL/uL (4.2-6.2); RED CELL DISTRIBUTION WIDTH 19.7 % (9.0-15.0); WHITE BLOOD COUNT (AUTO) 8.4 K/uL (4.8-10.8)
--- NOTE | 2022-03-25 23:39 | NUR ---
DR. JORGE LONGO MADE AWARE OF PT CONDITION AT THIS TIME S/P RR AND TRANSFER FROM [facility]. UNABLE TO REACH DR. LO PRIMARY PHYSICIAN OR DR. BARNES OBGYN. PT IS BLEEDING VAGINALLY BRIGHT RED BLOOD, ~350 CC NOTED IN CANISTER. PER MD GIVE 2 UNITS PRBCS NOW AND CONTACT DR. BARNES FOR EMERGENT HYSTERECTOMY. WILL CARRY OUT ORDERED.
[2022-03-25 23:40] LABS: HEMATOCRIT 22.5 % (36-48)
--- NOTE | 2022-03-25 23:41 | NUR ---
DR. BARNES TRIED TO REACH DOCTOR BARNES AT [phone]. NO ANSWER AT THIS NUMBER MESSAGE WAS LEFT.
--- NOTE | 2022-03-25 23:50 | NUR ---
DR. LO MULTIPLE CALLS MADE TO DR. LO. FINALLY REACHED MD TO UPDATE REGARDING PT CONDITION. PER MD CONTINUE TO TRY TO REACH DR. BARNES. CRITICAL CARE CONSULT FOR DR. OSMAN OBTAINED. OTHER ORDERS RECEIVED AND WILL BE CARRIED OUT ORDERED.
--- NOTE | 2022-03-25 23:52 | NUR ---
DR. BARNES 2ND MESSAGE LEFT FOR DR. BARNES AT [phone]. NO CALL BACK HAS BEEN RECEIVED.
[2022-03-25] MEDS ORDERED: ALBUMIN HUMAN 25% 200 ML IV ONE (23:56)
[2022-03-26] VITALS (16 sets, daily range): BP systolic 118–156
[2022-03-26] MEDS ORDERED: ALBUMIN HUMAN 25% 200 ML IV ONE
--- NOTE | 2022-03-26 00:20 | NUR ---
DR. OSMAN STAT CONSULT CALLED FOR . UPDATED ON PT CONDITION ORDERS RECEIVED FROM . PER OK TO REACH OUT TO ANY OBGYN/GENERAL SURGEON REGARDING EMERGENT HYSTERECTOMY. WILL CARRY OUT ORDERED.
--- NOTE | 2022-03-26 00:32 | NUR ---
DR. DIGGS CONTACTED DR. DIGGS OBGYN AT THIS TIME REGARDING PT CONDITION AND NEED FOR EMERGENT HYSTERECTOMY. MD ACCEPTING AND WILL CALL ME BACK.
[2022-03-26 01:28] LABS: PROTHROMBIN TIME 10.5 SECS (9.5-12.5)
--- NOTE | 2022-03-26 01:30 | NUR ---
DR. CATERINA LONGO AT BEDSIDE FOR EMERGENT HYSTERECTOMY. DR. DIGGS OBTAINING CONSENT FROM PT WHO IS AAO. MOTHER POPEYE, PRIMARY RN ANGEL, AND MYSELF ARE AT BEDSIDE TO WITNESS.
[2022-03-26] MEDS ORDERED: ALBUMIN HUMAN 25% 100 ML IV PRN (01:45)
--- NOTE | 2022-03-26 02:25 | NUR ---
Surgical team at bedside transporting patient to surgery with Dr Hess.
[2022-03-26] MEDS ORDERED: LR 1,000 ML IV SCH (03:00)
[2022-03-26] MEDS ORDERED: KETOROLAC TROMETHAMINE 30 MG VIAL IVP PRN (03:00)
[2022-03-26] MEDS ORDERED: HYDROmorphone 1 MG/ML INJ. CARTRIDGE IVP PRN ×2 (03:00→04:15)
[2022-03-26] MEDS ORDERED: ONDANSETRON HCL 4 MG/2 ML VIAL IVP PRN (03:00)
[2022-03-26] MEDS ORDERED: HYDROmorphone 2 MG/ML VIAL IVP PRN (03:00)
[2022-03-26] MEDS ORDERED: NALOXONE HCL 0.4 MG/ML AMP (NARCAN) IVP PRN ×2 (04:15)
[2022-03-26] MEDS ORDERED: CEFAZOLIN 2 GM IVPB PREMIX 50 ML IV SCH (04:15)
[2022-03-26] MEDS ORDERED: WATER FOR IRRIGATION,STERILE 1,000 ML IRRIG.SOLN IR ONE (04:30)
[2022-03-26] MEDS ORDERED: METOCLOPRAMIDE HCL 10 MG/2 ML VIAL ONE (04:30)
[2022-03-26] MEDS ORDERED: PHENYLEPHRINE HCL 10 MG/ML VIAL (NEOSYNEPHRINE) ONE (04:30)
[2022-03-26] MEDS ORDERED: ONDANSETRON HCL 4 MG/2 ML VIAL ONE (04:30)
[2022-03-26] MEDS ORDERED: SEVOFLURANE 15 MIN GAS INH ONE (04:30)
[2022-03-26] MEDS ORDERED: fentaNYL CITRATE/PF 100 MCG/2 ML AMP ONE (04:30)
[2022-03-26] MEDS ORDERED: NS IRRIG SOLN 1000 ML IR ONE (04:30)
[2022-03-26] MEDS ORDERED: HYDROmorphone 2 MG/ML VIAL ONE (04:30)
[2022-03-26] MEDS ORDERED: LIDOCAINE 1% 10 MG/ML, 20 ML MDV ONE (04:30)
[2022-03-26] MEDS ORDERED: LR 1,000 ML IV.SOLN IV ONE (04:30)
[2022-03-26] MEDS ORDERED: GLYCOPYRROLATE 0.2 MG/ML VIAL ONE (04:30)
[2022-03-26] MEDS ORDERED: MIDAZOLAM HCL 5 MG/ML VIAL (VERSED) IV ONE (04:30)
[2022-03-26] MEDS ORDERED: CEFAZOLIN 2 GM IVPB PREMIX 50 ML IV ONE (04:30)
[2022-03-26] MEDS ORDERED: ETOMIDATE 20 MG/ 10 ML VIAL (AMIDATE) ONE (04:30)
[2022-03-26] MEDS ORDERED: SUCCINYLCHOLINE CHLORIDE 20 MG/ML(QUELICIN) ONE (04:30)
[2022-03-26] MEDS ORDERED: NS IRRIG SOLN 5000 ML IR ONE (04:30)
[2022-03-26] MEDS ORDERED: ROCURONIUM BROMIDE 10 MG/ML (ZEMURON) ONE (04:30)
--- NOTE | 2022-03-26 04:30 | NUR ---
Received patient from OR after hysterectomy surgery. c/o incisional pain 02/12; medication for pain will be given as per MD orders. Connected to wall monitor; no signs of respiratory distress noted. will continue to monitor.
[2022-03-26] MEDS: LR 1,000 ML IV SCH ×3 (05:10→18:53)
--- NOTE | 2022-03-26 05:22 | NUR ---
DR. CAMERON LONGO CALLED UNIT BACK AT THIS TIME. MADE AWARE THAT WE HAD BEEN TRYING TO CONTACT HIM WITH NO SUCCESS AND DR. DIGGS WAS CALLED ONTO THE CASE FOR EMERGENT HYSTERECTOMY. UPDATED MD ON PT CONDITION, NO NEW ORDERS RECEIVED.
[2022-03-26 05:59] LABS: BASOPHILS % (AUTO) 0.6 % (0.0-2.0); EOSINOPHILS # (AUTO) 0.1 K/uL (0.0-0.4); EOSINOPHILS % (AUTO) 1.7 % (0.0-4.0); HEMATOCRIT 27.9 % (36-48); HEMOGLOBIN 9.5 g/dL (12.0-16.0); LYMPHOCYTES # (AUTO) 1.1 K/uL (1.0-5.5); LYMPHOCYTES % (AUTO) 12.7 % (20.5-51.5); MEAN CORPUSCULAR HEMOGLOBIN 30 pg (27-31); MEAN CORPUSCULAR HGB CONC 34 % (32-36); MEAN CORPUSCULAR VOLUME 89 fL (79.0-98.0); MONOCYTES # (AUTO) 0.5 K/uL (0.0-1.0); MONOCYTES % (AUTO) 6.6 % (1.7-9.3); NEUTROPHILS # (AUTO) 6.6 K/uL (1.8-7.7); NEUTROPHILS % (AUTO) 78.4 % (40.0-70.0); PLATELET COUNT (AUTO) 175 K/uL (130-430); RED BLOOD CELL COUNT(AUTO) 3.15 MIL/uL (4.2-6.2); RED CELL DISTRIBUTION WIDTH 16.1 % (9.0-15.0); WHITE BLOOD COUNT (AUTO) 8.4 K/uL (4.8-10.8)
--- NOTE | 2022-03-26 06:00 | NUR ---
DR. JORGE LONGO CALLED UNIT AT THIS TIME FOR PT UPDATE. UPDATED ON PT CONDITION. NO NEW ORDERS RECEIVED AT THIS TIME.
[2022-03-26] MEDS: CEFAZOLIN 2 GM IVPB PREMIX 50 ML IV SCH ×2 (06:55→15:32)
[2022-03-26 07:15] LABS: ALBUMIN 3.4 g/dL (3.4-4.8); BILIRUBIN,DIRECT 0.5 mg/dL (0.0-0.3); CALCIUM 8.4 mg/dL (8.4-11.0); CREATININE 1.12 mg/dL (0.55-1.30); PHOSPHORUS 5.4 mg/dL (2.7-4.5)
--- NOTE | 2022-03-26 07:26 | NUR ---
Opening Note: Report rc'vd from outgoing NOC RN, all cares assumed.
--- NOTE | 2022-03-26 07:40 | NUR ---
Mariam-pad assessed, no active bleeding noted. Pad clean and dry.
[2022-03-26] MEDS: HYDROmorphone 1 MG/ML INJ. CARTRIDGE IM PRN (07:41)
[2022-03-26] MEDS: ONDANSETRON HCL 4 MG/2 ML VIAL IVP PRN ×2 (07:50→13:26)
--- NOTE | 2022-03-26 07:51 | NUR ---
6/10 Pain, PRN given as ordered.
--- NOTE | 2022-03-26 08:40 | NUR ---
Mariam-pad assessed, no active bleeding noted. Pad clean and dry.
[2022-03-26] MEDS: FOLIC ACID 1 MG TABLET PO SCH (09:26)
[2022-03-26] MEDS: SIMETHICONE 80 MG TAB.CHEW PO SCH ×5 (09:27→20:07)
[2022-03-26] MEDS: OXYCODONE/ACETAMINOPHEN 5-325 TABLET PO PRN ×2 (09:27→20:08)
--- NOTE | 2022-03-26 09:40 | NUR ---
Mariam-pad assessed, no active bleeding noted. Pad clean and dry.
--- NOTE | 2022-03-26 10:00 | NUR ---
Patient has increase of Nausea, medicated with Zofran, education provided. Encouraged patient to take clear liquids.
--- NOTE | 2022-03-26 10:05 | NUR ---
Dr. Johnson called unit, all updates given. MD to come see patient at bedside.
--- NOTE | 2022-03-26 10:40 | NUR ---
Mariam-pad assessed, no active bleeding noted. Pad clean and dry.
--- NOTE | 2022-03-26 11:40 | NUR ---
Mariam-pad assessed, no active bleeding noted. Pad clean and dry.
[2022-03-26] MEDS: ACETAMINOPHEN I.V. 1000 MG 100 ML IV SCH ×2 (12:04→17:23)
--- NOTE | 2022-03-26 12:15 | NUR ---
Dr. Hess at bedside, patient and MD discussed plan of care. MD to review chart.
[2022-03-26] MEDS ORDERED: PROMETHAZINE INJ.Non-Formulary 25 MG/ML AMP IM PRN (12:30)
--- NOTE | 2022-03-26 12:40 | NUR ---
Mariam-pad assessed, no active bleeding noted. Pad clean and dry.
[2022-03-26] MEDS: MEPERIDINE 100 MG INJ. 100 MG/ML VIAL IM PRN (13:25)
--- NOTE | 2022-03-26 13:40 | NUR ---
Mariam-pad assessed, no active bleeding noted. Pad clean and dry.
--- NOTE | 2022-03-26 14:00 | NUR ---
RN Rounds Patient remains stable in no acute distress and or discomfort. Family at bedside. Bed low and locked for safety, call light in reach.
--- NOTE | 2022-03-26 14:40 | NUR ---
Mariam-pad assessed, no active bleeding noted. Pad clean and dry.
--- NOTE | 2022-03-26 15:24 | NUR ---
Transfer Note 125B - Tele The patient, CRIS HUIZAR, 26 y/o, F admitted by JONN LO MD, was given written information regarding hospital policies, unit procedures and contact persons. Bedside report given to RN, time given for questions and updates. Tele monitor placed and verified with unit monitor. 2nd RN verified monitor signal.
[2022-03-26] MEDS: METOCLOPRAMIDE HCL 10 MG/2 ML VIAL IVP PRN ×2 (16:49→16:53)
--- NOTE | 2022-03-26 18:30 | NUR ---
CONSULTATION PAGED/CALLED Reason for Consultation: [] INCREASING HEART RATE Person Who was Notified: [] DR Grace HUBER Consulting Physician: [] Grace POZO Background Check Coordinator Specialty: [] CARDIO Ordering Physician: [] DR LO
--- NOTE | 2022-03-26 19:20 | NUR ---
MARIE OUTPUT WAS 150 CC, INFORMED NIGHT NURSE.
[2022-03-26] MEDS ORDERED: SENNOSIDES/DOCUSATE SODIUM 1 TAB TABLET(SENOKOT-S) PO PRN (21:00)
[2022-03-26] MEDS ORDERED: TEMAZEPAM 15 MG CAPSULE PO PRN (21:00)
--- NOTE | 2022-03-26 22:38 | NUR ---
Patient in bed. No acute distress noted. C/O pain prn given. Family at the bedside. Will continue to monitor.
[2022-03-27] VITALS: BP_SYST 148
[2022-03-27] MEDS: ACETAMINOPHEN I.V. 1000 MG 100 ML IV SCH
[2022-03-27] MEDS ORDERED: CARVEDILOL 6.25 MG TABLET (COREG) PO ONE (01:45)
--- NOTE | 2022-03-27 01:59 | NUR ---
Patient's heart rate continues to jump into the 120's. Call placed to the received new order. Will continue to monitor.
[2022-03-27] MEDS: SIMETHICONE 80 MG TAB.CHEW PO SCH ×5 (03:00→20:41)
[2022-03-27] MEDS: LR 1,000 ML IV SCH ×2 (04:15→12:15)
[2022-03-27] MEDS: ONDANSETRON HCL 4 MG/2 ML VIAL IVP PRN ×2 (05:28→15:43)
[2022-03-27] MEDS: OXYCODONE/ACETAMINOPHEN 5-325 TABLET PO PRN (05:30)
--- NOTE | 2022-03-27 05:56 | NUR ---
Prn given for pain. Damon output good. Urine color jeb. Will continue to monitor.
[2022-03-27 07:56] VITALS: BP_SYST 130
[2022-03-27 07:56] LABS: ALBUMIN 2.6 g/dL (3.4-4.8); BILIRUBIN,DIRECT 0.4 mg/dL (0.0-0.3); TOTAL BILIRUBIN 2.6 mg/dL (0.0-1.0)
--- NOTE | 2022-03-27 08:00 | NUR ---
PT denies any vaginal bleed from last night ant at this time.
[2022-03-27] MEDS: FOLIC ACID 1 MG TABLET PO SCH (08:24)
[2022-03-27] MEDS: METOCLOPRAMIDE HCL 10 MG/2 ML VIAL IVP PRN (08:25)
[2022-03-27] MEDS: CARVEDILOL 6.25 MG TABLET (COREG) PO SCH ×2 (08:25→20:42)
[2022-03-27] MEDS: MEPERIDINE 100 MG INJ. 100 MG/ML VIAL IM PRN ×2 (08:42→15:55)
[2022-03-27 08:53] LABS: BASOPHILS % (AUTO) 0.5 % (0.0-2.0); EOSINOPHILS # (AUTO) 0.1 K/uL (0.0-0.4); EOSINOPHILS % (AUTO) 1.4 % (0.0-4.0); HEMOGLOBIN 7.1 g/dL (12.0-16.0); LYMPHOCYTES # (AUTO) 0.6 K/uL (1.0-5.5); LYMPHOCYTES % (AUTO) 10.2 % (20.5-51.5); MEAN CORPUSCULAR HEMOGLOBIN 30 pg (27-31); MEAN CORPUSCULAR HGB CONC 33 % (32-36); MEAN CORPUSCULAR VOLUME 91 fL (79.0-98.0); MONOCYTES # (AUTO) 0.4 K/uL (0.0-1.0); MONOCYTES % (AUTO) 7.1 % (1.7-9.3); NEUTROPHILS # (AUTO) 4.6 K/uL (1.8-7.7); NEUTROPHILS % (AUTO) 80.8 % (40.0-70.0); PLATELET COUNT (AUTO) 145 K/uL (130-430); RED BLOOD CELL COUNT(AUTO) 2.36 MIL/uL (4.2-6.2); RED CELL DISTRIBUTION WIDTH 18.5 % (9.0-15.0); WHITE BLOOD COUNT (AUTO) 5.7 K/uL (4.8-10.8)
[2022-03-27 10:21] LABS: HEMATOCRIT 21.4 % (36-48)
[2022-03-27] MEDS ORDERED: BISACODYL 10 MG/SUPPOSITORY RC ONE (11:00)
--- NOTE | 2022-03-27 11:30 | NUR ---
Teixeira was discontinued, there is no signs of bleeding from vagina , teixeira tip has no signs of blood.
[2022-03-27 12:06] LABS: HOMOCYSTEINE, PLASMA <3.0 umol/L (0.0-14.5)
[2022-03-27 12:53] LABS: BASOPHILS % (AUTO) 0.6 % (0.0-2.0); EOSINOPHILS # (AUTO) 0.1 K/uL (0.0-0.4); EOSINOPHILS % (AUTO) 1.5 % (0.0-4.0); LYMPHOCYTES # (AUTO) 0.6 K/uL (1.0-5.5); LYMPHOCYTES % (AUTO) 11.3 % (20.5-51.5); MEAN CORPUSCULAR HEMOGLOBIN 30 pg (27-31); MEAN CORPUSCULAR HGB CONC 34 % (32-36); MEAN CORPUSCULAR VOLUME 90 fL (79.0-98.0); MONOCYTES # (AUTO) 0.4 K/uL (0.0-1.0); MONOCYTES % (AUTO) 6.9 % (1.7-9.3); NEUTROPHILS # (AUTO) 4.5 K/uL (1.8-7.7); NEUTROPHILS % (AUTO) 79.7 % (40.0-70.0); PLATELET COUNT (AUTO) 146 K/uL (130-430); RED CELL DISTRIBUTION WIDTH 19.2 % (9.0-15.0); WHITE BLOOD COUNT (AUTO) 5.6 K/uL (4.8-10.8)
[2022-03-27 12:58] LABS: HEMATOCRIT 18.9 % (36-48); HEMOGLOBIN 6.4 g/dL (12.0-16.0)
[2022-03-27 13:00] VITALS: BP_SYST 112
[2022-03-27 14:15] LABS: CALCIUM 7.7 mg/dL (8.4-11.0); CREATININE 0.64 mg/dL (0.55-1.30)
[2022-03-27] MEDS ORDERED: BISACODYL 10 MG/SUPPOSITORY RC PRN (16:00)
--- NOTE | 2022-03-27 16:35 | NUR ---
Platelet not yet available per blood bank tech. Informed tech that Dr hopkins dictated his indication for plt.
[2022-03-27 16:40] VITALS: BP_SYST 126
--- NOTE | 2022-03-27 16:40 | NUR ---
started transfusion of first unit of prbc. pre transfusion vitals wnl. pt encouraged to call for any adverse reactions. will continue monitoring pt. family at bedside.
--- NOTE | 2022-03-27 18:04 | NUR ---
dr johnson was here and seen pt. Mentioned to DR Johnson abt the pt's mom c/o of pt's eyes are yellowish. looked at pt's labs and said he will put orders for labs in am.
--- NOTE | 2022-03-27 18:06 | NUR ---
transfusion of first unit of prbc ongoing. pt denies and rxn to blood at this time.
--- NOTE | 2022-03-27 19:00 | NUR ---
Received pt in bed.AOX4.On RA.ST on monitor.Not in respiratory distress noted.IV R FA g22,patent and intact.Abdominal dressing noted,clean,dry and intact,no bleeding noted.Updated on poc for the evening.Bed in lowest position.Bedside table and call light are within reach.
[2022-03-27 20:00] VITALS: BP_SYST 123
--- NOTE | 2022-03-27 20:02 | NUR ---
Blood transfusion started for 2nd unit PRBC. Vital signs within normal limit.
--- NOTE | 2022-03-27 20:17 | NUR ---
No untoward signs and symptoms noted.No allergic reaction from blood transfusion noted.Will continue to monitor pt.
[2022-03-27] MEDS: HYDROmorphone 1 MG/ML INJ. CARTRIDGE IM PRN (20:57)
[2022-03-28] VITALS: BP_SYST 124
--- NOTE | 2022-03-28 00:05 | NUR ---
Blood transfusion finished at this time.Pt tolerated well.Vital signs within normal limit.
[2022-03-28] MEDS: LR 1,000 ML IV SCH ×4 (00:24→20:15)
[2022-03-28] MEDS: SIMETHICONE 80 MG TAB.CHEW PO SCH ×6 (00:32→19:14)
[2022-03-28 00:35] VITALS: BP_SYST 114
--- NOTE | 2022-03-28 01:03 | NUR ---
Platelet transfusion started.
--- NOTE | 2022-03-28 01:18 | NUR ---
No untoward reaction from platelet transfusion noted.Vital signs WNL.
--- NOTE | 2022-03-28 03:30 | NUR ---
Platelet transfusion done at this time. VS within normal limit.
[2022-03-28] MEDS: ONDANSETRON HCL 4 MG/2 ML VIAL IVP PRN ×3 (06:40→17:14)
--- NOTE | 2022-03-28 07:10 | NUR ---
opening recive sbar from night nurse, patient in bed with eyes closed, respirations even and non labored, iv running as ordered, bed in low and lock position, family at bedside
--- NOTE | 2022-03-28 07:15 | NUR ---
ENDORSED TO AM RN FOR CONTINUITY OF CARE.PT NOT IN RESPIRATORY DISTRESS NOTED.
[2022-03-28 07:30] LABS: PROTHROMBIN TIME 10.4 SECS (9.5-12.5)
[2022-03-28 07:40] LABS: ALBUMIN 2.7 g/dL (3.4-4.8); BILIRUBIN,DIRECT 0.4 mg/dL (0.0-0.3); CREATININE 0.55 mg/dL (0.55-1.30); PHOSPHORUS 4.1 mg/dL (2.7-4.5); TOTAL BILIRUBIN 2.4 mg/dL (0.0-1.0)
[2022-03-28] MEDS ORDERED: DIATR MEGLU/DIATRIZ SOD 30 ML SOLUTION PO ONE (07:57)
[2022-03-28 08:00] VITALS: BP_SYST 116
[2022-03-28 08:01] LABS: BASOPHILS % (AUTO) 0.8 % (0.0-2.0); EOSINOPHILS # (AUTO) 0.1 K/uL (0.0-0.4); EOSINOPHILS % (AUTO) 2.3 % (0.0-4.0); HEMATOCRIT 24.6 % (36-48); HEMOGLOBIN 8.3 g/dL (12.0-16.0); LYMPHOCYTES # (AUTO) 0.9 K/uL (1.0-5.5); LYMPHOCYTES % (AUTO) 15.2 % (20.5-51.5); MEAN CORPUSCULAR HEMOGLOBIN 30 pg (27-31); MEAN CORPUSCULAR HGB CONC 34 % (32-36); MEAN CORPUSCULAR VOLUME 89 fL (79.0-98.0); MONOCYTES # (AUTO) 0.4 K/uL (0.0-1.0); MONOCYTES % (AUTO) 7.6 % (1.7-9.3); NEUTROPHILS # (AUTO) 4.3 K/uL (1.8-7.7); NEUTROPHILS % (AUTO) 74.1 % (40.0-70.0); PLATELET COUNT (AUTO) 156 K/uL (130-430); RED BLOOD CELL COUNT(AUTO) 2.76 MIL/uL (4.2-6.2); RED CELL DISTRIBUTION WIDTH 17.9 % (9.0-15.0); WHITE BLOOD COUNT (AUTO) 5.7 K/uL (4.8-10.8)
--- NOTE | 2022-03-28 08:16 | NUR ---
critical labs receive critical fibrinogen 594. paged dr Raines
--- NOTE | 2022-03-28 08:45 | NUR ---
pain and nausea patient complaining of pain to abdomen and nausea. Patient requesting medication, repositioned patient,
[2022-03-28] MEDS: HYDROmorphone 1 MG/ML INJ. CARTRIDGE IM PRN ×2 (09:00→16:18)
[2022-03-28] MEDS: FOLIC ACID 1 MG TABLET PO SCH (09:00)
[2022-03-28] MEDS: CARVEDILOL 6.25 MG TABLET (COREG) PO SCH ×2 (09:00→21:29)
--- NOTE | 2022-03-28 09:15 | NUR ---
critical lab Dr. Raines on the floor informed fibrinogen lvl, no new orders
[2022-03-28 12:00] VITALS: BP_SYST 108
--- NOTE | 2022-03-28 12:16 | NUR ---
BATHROOM ASSISTED PATIENT WITH AMBULATION TO THE RESTROOM. PATIENT VOIDED, AMBULATED BACK TO BED. PATIENT STATES THAT SHE IS PASSING GAS AND THE PAIN IS TOLERABLE
--- NOTE | 2022-03-28 12:30 | NUR ---
IV ISSUE PATIENT COMPLAINING OF PREVIOUS IV SITE, INFORMED DR MANCILLA, NO NEW ORDERS, DR TO SEE PATIENT
--- NOTE | 2022-03-28 13:36 | NUR ---
CONSULTATION: REASON FOR CONSULT: CELLULITIS CONSULTING PHYSICIAN: Moon MOULTON ORDERED BY: TERESITA SPOKE WITH JEOVANNY [phone]
--- NOTE | 2022-03-28 14:34 | NUR ---
CONSUMER CREDIT COUNSELOR ACSW Elena met with patient to provide Social Service support due to patient's new condition and assess for current impact on mental health. ACSW Elena met with patient at bedside. Patient was awake, alert and oriented x4. ACSW completed introductions reason for contact, provided business card and patient was open to contact. Patient provided permission to continue contact with her mother Gladys at bedside. ACSW and patient discussed patient's current condition. Patient expressed missing her daughter, and being scared to return home as plan to discharge was this day or tomorrow. ACSW utilized Empathetic and Reflective listening techniques and acknowledged her concerns and encouraged patient to express these to her physicians. Mental Health- ACSW observed and acknowledged semi colon tattoo on inside of patient's left wrist. Patient shared history of depression and anxiety, but denied current and past SI. Patient shared she has been having a difficult time obtaining mental health care at this time. ACSW conducted brief assessment for Post depression. Patient also discussed no longer being able to visit with her in the quiet room and requested for ACSW to follow up. ACSW provided the following resources- - Crisis Text Line flyer - 988 Suicide prevention Hotline/Mental Health Resources flyer - Mental Health Care resource packet. ACSW consulted with Med Surg/Tele Director Leslee who shared visitation with a healthy baby was not encouraged in quiet room due to safety concerns and visitation policy. ACSW provided update to patient and her mother and reiterated the hospital's desire to protect the health and safety of patients and their visitors. ACSW will continue to be available as needed
--- NOTE | 2022-03-28 14:40 | NUR ---
MD Dr Meyers at bedside examining patient, per elevate and warm compresses
--- NOTE | 2022-03-28 14:50 | NUR ---
nursing notes left arm elevated with pillow, warm compress placed as ordered
[2022-03-28 16:30] VITALS: BP_SYST 115
[2022-03-28] MEDS: cefTRIAXone 1 GM in D5W 50 ML IV SCH (16:59)
--- NOTE | 2022-03-28 18:45 | NUR ---
MD DR DIGGS BEDSIDE EXAMINING PATIENT, NEW ORDERS RECEIVED
--- NOTE | 2022-03-28 19:10 | NUR ---
CLOSING PROVIDED SBAR TO THE NIGHT NURSE, PATIENT IN BED SITTING, RESPIRATIONS ARE EVEN AND NON LABORED, BED ON LOW AND LOCKED POSITION, CALL LIGHT WITHIN REACH, FRIEND AT BEDSIDE ENDORSED CARE TO NIGHT NURSE
[2022-03-28 20:00] VITALS: BP_SYST 118
[2022-03-29] MEDS: SIMETHICONE 80 MG TAB.CHEW PO SCH ×7 (00:21→23:46)
[2022-03-29] MEDS: LR 1,000 ML IV SCH ×3 (04:15→20:15)
[2022-03-29 06:40] LABS: BASOPHILS % (AUTO) 0.6 % (0.0-2.0); EOSINOPHILS # (AUTO) 0.2 K/uL (0.0-0.4); EOSINOPHILS % (AUTO) 4.1 % (0.0-4.0); HEMATOCRIT 24.1 % (36-48); HEMOGLOBIN 8.1 g/dL (12.0-16.0); LYMPHOCYTES # (AUTO) 0.8 K/uL (1.0-5.5); LYMPHOCYTES % (AUTO) 18.7 % (20.5-51.5); MEAN CORPUSCULAR HEMOGLOBIN 30 pg (27-31); MEAN CORPUSCULAR HGB CONC 34 % (32-36); MEAN CORPUSCULAR VOLUME 89 fL (79.0-98.0); MONOCYTES # (AUTO) 0.3 K/uL (0.0-1.0); MONOCYTES % (AUTO) 6.7 % (1.7-9.3); NEUTROPHILS # (AUTO) 2.9 K/uL (1.8-7.7); NEUTROPHILS % (AUTO) 69.9 % (40.0-70.0); PLATELET COUNT (AUTO) 179 K/uL (130-430); RED BLOOD CELL COUNT(AUTO) 2.71 MIL/uL (4.2-6.2); RED CELL DISTRIBUTION WIDTH 18.6 % (9.0-15.0); WHITE BLOOD COUNT (AUTO) 4.2 K/uL (4.8-10.8)
[2022-03-29] MEDS: OXYCODONE/ACETAMINOPHEN 5-325 TABLET PO PRN (06:46)
[2022-03-29 06:57] LABS: ALBUMIN 2.7 g/dL (3.4-4.8); BILIRUBIN,DIRECT 0.4 mg/dL (0.0-0.3); TOTAL BILIRUBIN 2.6 mg/dL (0.0-1.0)
--- NOTE | 2022-03-29 07:15 | NUR ---
Opening Note Report rcvd from out going NOC RN, all cares assumed.
[2022-03-29 08:00] VITALS: BP_SYST 117
--- NOTE | 2022-03-29 08:15 | NUR ---
Breakfast tray given
[2022-03-29] MEDS: FOLIC ACID 1 MG TABLET PO SCH (08:31)
[2022-03-29] MEDS: CARVEDILOL 6.25 MG TABLET (COREG) PO SCH ×2 (08:31→22:49)
--- NOTE | 2022-03-29 09:44 | NUR ---
Education provided at bedside on ambulation, pain medication, and incision cares. Patient has verbalized understanding, mother at bedside to assist in education and encouragement on patient ambulating more often. Patient remains in bed with limited movement. Education provided on complications and risks associated with stagnant behaviors.
--- NOTE | 2022-03-29 11:32 | NUR ---
Patient refuses IV Fluids
[2022-03-29] MEDS: ACETAMINOPHEN 325 MG TABLET PO PRN ×2 (13:06→20:31)
--- NOTE | 2022-03-29 13:07 | NUR ---
PRN Tylenol given for Mild Discomfort 08/12
--- NOTE | 2022-03-29 13:07 | NUR ---
Patient up in wheelchair in lobby with baby, mother at side.
[2022-03-29 13:17] VITALS: BP_SYST 110
--- NOTE | 2022-03-29 14:00 | NUR ---
Dr. Hess making rounds, to review chart.
--- NOTE | 2022-03-29 14:44 | NUR ---
Continuing to encourage patient to increase her ambulation, risks and benefits discussed, patient has verbalized understanding.
--- NOTE | 2022-03-29 14:49 | NUR ---
WOUND EVALUATION: Wound Consult received from Dr. Roldan. Thank you, Dr. Roldan, for the consult. Patient received in a Hoyt Bed with an Isoflex CORA mattress, awake, alert, and oriented. Patient is able to turn slowly secondary to abdominal pain. Rene Score is a 19. Past Medical History: Emergency C/S at [facility]/27/21, D&C 03/09/22, history of laceration to the cervix and blood clot s/p suture repair. Patient was admitted for severe vaginal bleeding and abdominal pain. Recent Labs: WBC 4.2, RBC 2.71, hemoglobin 8.1, hematocrit 24.1, BUN 5, creatinine 0.55, serum total protein 5.8, albumin 2.7, PTT 22.5, fibrinogen 594, MALDONADO screen negative. Microbiology: Blood culture results x2 in progress. MRSA screen results negative x2. Urine culture results negative. Intrinsic factors that delay wound healing: Multiple episodes of vaginal bleeding, Hypoalbuminemia. Extrinsic factors that delay wound healing: Decreased mobility. Wound Assessment: 1. Abdominal Fold/Pannus: Surgical incision from Hysterectomy. Wound bed is not visible secondary to Steri-Strips, but looks to be approximated with scant red drainage on right lateral aspect of incision. Mariam-wound intact. Incision approximately measures 0.2 cm x 18.0 cm. Recommend: Cleanse site with normal saline. Remove any Steri-Strips that are falling off. Apply Sureprep to mariam-wound. Cover incision with alginate dressings, then dry gauze. Cover with ABD Pads and secure with paper tape. Perform wound care daily, and as needed for dressing soiling or dislodgement. Also recommend: Encourage and assist patient as needed with repositioning every 2 hours with pillow support and off-load pressure areas with pillows for pressure re-distribution. Offload, elevate and float bilateral heels with pillows. Perform skin care and monitor skin integrity Q shift.
[2022-03-29 16:00] VITALS: BP_SYST 109
[2022-03-29 16:03] VITALS: BP_SYST 110
[2022-03-29] MEDS: cefTRIAXone 1 GM in D5W 50 ML IV SCH (16:50)
--- NOTE | 2022-03-29 17:58 | NUR ---
Patient ambulated with assistance approx 45 feet
--- NOTE | 2022-03-29 18:37 | NUR ---
Dinner tray given to patient
--- NOTE | 2022-03-29 18:48 | NUR ---
Closing Note: Report given to incoming NOC RN, all cares endorsed.
--- NOTE | 2022-03-29 19:30 | NUR ---
Opening note Received patient awake, AOx4, resting in bed. No distress and nonlabored breathing on room air. IV to RFA is SL. Bed is locked in lowest position, side rails 2x and call light w/in reach. Bed alarm is off, she reports she calls for assistance or mother helps her,if needs to get up for restroom. Updated board.
[2022-03-29 20:00] VITALS: BP_SYST 114
--- NOTE | 2022-03-29 20:31 | NUR ---
Tylenol Patient reporting mild/moderate pain/discomfort to abdomen. Administered Tylenol, she does not want Percocet. She ambulated to restroom for void and returned to bed. SCD'S back on. Incentive spirometer; demonstrates inspiration of 2000 ml.
--- NOTE | 2022-03-29 23:48 | NUR ---
Rounds, Teresa Patient resting, eyes closed. Momentarily awakened for scheduled med, Teresa. Her mother remains visiting at bedside. Presently has no further needs.
[2022-03-30] VITALS: BP_SYST 105
--- NOTE | 2022-03-30 01:40 | NUR ---
Rounds, resting Patient resting with eyes closed. Respirations even and nonlabored. Safety precautions in place.
[2022-03-30] MEDS: LR 1,000 ML IV SCH ×3 (04:15→20:15)
[2022-03-30] MEDS: SIMETHICONE 80 MG TAB.CHEW PO SCH ×6 (04:31→22:27)
[2022-03-30 07:22] LABS: BASOPHILS % (AUTO) 0.4 % (0.0-2.0); EOSINOPHILS # (AUTO) 0.2 K/uL (0.0-0.4); EOSINOPHILS % (AUTO) 4.9 % (0.0-4.0); HEMATOCRIT 24.1 % (36-48); HEMOGLOBIN 8.2 g/dL (12.0-16.0); LYMPHOCYTES # (AUTO) 0.7 K/uL (1.0-5.5); LYMPHOCYTES % (AUTO) 18.4 % (20.5-51.5); MEAN CORPUSCULAR HEMOGLOBIN 30 pg (27-31); MEAN CORPUSCULAR HGB CONC 34 % (32-36); MEAN CORPUSCULAR VOLUME 88 fL (79.0-98.0); MONOCYTES # (AUTO) 0.2 K/uL (0.0-1.0); MONOCYTES % (AUTO) 6.4 % (1.7-9.3); NEUTROPHILS # (AUTO) 2.7 K/uL (1.8-7.7); NEUTROPHILS % (AUTO) 69.9 % (40.0-70.0); PLATELET COUNT (AUTO) 202 K/uL (130-430); RED BLOOD CELL COUNT(AUTO) 2.73 MIL/uL (4.2-6.2); RED CELL DISTRIBUTION WIDTH 18.1 % (9.0-15.0); WHITE BLOOD COUNT (AUTO) 3.8 K/uL (4.8-10.8)
[2022-03-30] MEDS: ACETAMINOPHEN 325 MG TABLET PO PRN ×2 (07:23→14:17)
--- NOTE | 2022-03-30 07:23 | NUR ---
closing note Patient is resting in bed, awake and pumping ( she will throw out milk ). No distress. She reports mild/moderate pain and requested Tylenol, which was given. Call light w/in reach. Will endorse care.
[2022-03-30 08:00] VITALS: BP_SYST 105
[2022-03-30 08:35] LABS: ALBUMIN 2.8 g/dL (3.4-4.8); BILIRUBIN,DIRECT 0.5 mg/dL (0.0-0.3); TOTAL BILIRUBIN 2.5 mg/dL (0.0-1.0)
[2022-03-30] MEDS: CARVEDILOL 6.25 MG TABLET (COREG) PO SCH ×3 (09:00→20:47)
[2022-03-30] MEDS: FOLIC ACID 1 MG TABLET PO SCH (09:53)
[2022-03-30 12:37] VITALS: BP_SYST 120
[2022-03-30] MEDS ORDERED: MAG-AL HYDROX/SIMETH 30 ML UDC PO PRN (15:30)
[2022-03-30 16:26] VITALS: BP_SYST 118
[2022-03-30] MEDS: cefTRIAXone 1 GM in D5W 50 ML IV SCH (16:33)
[2022-03-30] MEDS: OXYCODONE/ACETAMINOPHEN 5-325 TABLET PO PRN ×2 (16:34→22:29)
[2022-03-30 19:35] VITALS: BP_SYST 120
--- NOTE | 2022-03-30 22:00 | NUR ---
INCENTIVE SPIROMETER TEACHING PATIENT SUCCESSFULLY DEMONSTRATED CORRECT USAGE OF INCENTIVE SPIROMETER. SHE IS AVERAGING 1500 ML AT THIS TIME, BUT WITH MILD ABDOMINAL PAIN. HER OXYGEN SATURATION IS 99% ON ROOM AIR. WILL CONTINUE TO ENCOURAGE INCENTIVE SPIROMETER USAGE.
[2022-03-31 00:33] VITALS: BP_SYST 117
[2022-03-31] MEDS: LR 1,000 ML IV SCH ×2 (03:42→12:15)
[2022-03-31] MEDS: SIMETHICONE 80 MG TAB.CHEW PO SCH ×3 (03:42→12:29)
[2022-03-31] MEDS: OXYCODONE/ACETAMINOPHEN 5-325 TABLET PO PRN (06:03)
--- NOTE | 2022-03-31 06:40 | NUR ---
CLOSING NOTE PATIENT DID WELL AND AMBULATED SEVERAL TIMES DURING THEN NIGHT WITHOUT ASSISTANCE NEEDED. PATIENT VERBALIZED THAT PRN MEDICATION GIVEN TO HER FOR HER PAIN WAS EFFECTIVE, SHE ALSO STATES SHE THINKS THE MYLICON IS VERY HELPFUL FOR HER GAS. SHE REFUSED HER IVF BUT VERBALIZED THAT SHE IS DRINKING LOTS OF FLUIDS. AT THIS TIME, PATIENT IS RESTING IN BED, STABLE, NO SIGNS OF RESPIRATORY DISTRESS. BED IS LOCKED, ALARMED, AND AT THE LOWEST LEVEL. FALL, SAFETY, RESPIRATORY, AND ASPIRATION PRECAUTIONS HAVE BEEN IN PLACE THROUGHOUT THE SHIFT. WILL CONTINUE TO MONITOR UNTIL REPORT IS GIVEN AT BEDSIDE TO AM NURSE.
[2022-03-31 06:41] LABS: BASOPHILS % (AUTO) 0.6 % (0.0-2.0); EOSINOPHILS # (AUTO) 0.2 K/uL (0.0-0.4); EOSINOPHILS % (AUTO) 4.3 % (0.0-4.0); HEMATOCRIT 25.2 % (36-48); HEMOGLOBIN 8.6 g/dL (12.0-16.0); LYMPHOCYTES # (AUTO) 0.8 K/uL (1.0-5.5); LYMPHOCYTES % (AUTO) 17.3 % (20.5-51.5); MEAN CORPUSCULAR HEMOGLOBIN 30 pg (27-31); MEAN CORPUSCULAR HGB CONC 34 % (32-36); MEAN CORPUSCULAR VOLUME 89 fL (79.0-98.0); MONOCYTES # (AUTO) 0.4 K/uL (0.0-1.0); NEUTROPHILS # (AUTO) 3.1 K/uL (1.8-7.7); NEUTROPHILS % (AUTO) 69.8 % (40.0-70.0); PLATELET COUNT (AUTO) 221 K/uL (130-430); RED BLOOD CELL COUNT(AUTO) 2.85 MIL/uL (4.2-6.2); RED CELL DISTRIBUTION WIDTH 18.6 % (9.0-15.0); WHITE BLOOD COUNT (AUTO) 4.4 K/uL (4.8-10.8)
--- NOTE | 2022-03-31 07:00 | NUR ---
Report received from orthotic technician RN for continuity of care. Patient in stable condition. No distress noted.
[2022-03-31 07:01] LABS: CALCIUM 9.5 mg/dL (8.4-11.0); CREATININE 0.57 mg/dL (0.55-1.30)
[2022-03-31 07:57] VITALS: BP_SYST 126
--- NOTE | 2022-03-31 08:33 | NUR ---
PT working with patient.
[2022-03-31] MEDS: CARVEDILOL 6.25 MG TABLET (COREG) PO SCH ×2 (09:00→09:15)
[2022-03-31] MEDS: FOLIC ACID 1 MG TABLET PO SCH (09:10)
[2022-03-31 12:00] VITALS: BP_SYST 132
--- NOTE | 2022-03-31 13:41 | NUR ---
Patient ready for discharge. All paperwork and education provided. Patient IV removed and is C/D/I. Patient dressing changed. Patient abdominal binder changed. SELVIN Riddle at bedside to assist. Patient changed into regular clothes. Ambulatory with steady gait to personal vehicle. Belongings with patient.
== END 2022-03-31 14:00 | disposition home or self-care (01) | DRG 513 ==
LOC: SED 02:44 → SMU 06:43 → SIC 03-25 23:32 → STU 03-26 15:15 → SMU 03-29 22:28
PROVIDERS: ADMIT Internal Medicine; ATTEND Internal Medicine
PROC: 30233N1 Transfusion of Nonautologous Red Blood Cells into Peripheral Vein, Percutaneous Approach (ICD-10-PCS; principal; 2022-03-20)
PROC: 0TJB8ZZ Inspection of Bladder, Via Natural or Artificial Opening Endoscopic (ICD-10-PCS; 2022-03-26)
PROC: 0UT90ZZ Resection of Uterus, Open Approach (ICD-10-PCS; 2022-03-26)
PROC: 30233R1 Transfusion of Nonautologous Platelets into Peripheral Vein, Percutaneous Approach (ICD-10-PCS; 2022-03-28)
DX: N87.9 Dysplasia of cervix uteri, unspecified (principal); E43 Unspecified severe protein-calorie malnutrition; I80.8 Phlebitis and thrombophlebitis of other sites; K56.7 Ileus, unspecified; N39.0 Urinary tract infection, site not specified; D64.9 Anemia, unspecified; L03.114 Cellulitis of left upper limb; J45.909 Unspecified asthma, uncomplicated; N72 Inflammatory disease of cervix uteri; N93.8 Other specified abnormal uterine and vaginal bleeding; Z20.822 Contact with and (suspected) exposure to COVID-19; N73.6 Female pelvic peritoneal adhesions (postinfective); Z98.891 History of uterine scar from previous surgery; Z90.710 Acquired absence of both cervix and uterus; Z68.33 Body mass index [BMI] 33.0-33.9, adult
CPT/HCPCS: 36415; 36430; 71045; 71260-TC; 76376; 76856-TC; 80048; 80053; 80076; 81000; 82247; 82248; 82607; 82728; 82746; 83010; 83051; 83090; 83540; 83550; 83615; 83735; 83921; 84100; 85014; 85018; 85025; 85044; 85048; 85049-TC; 85384; 85610-TC; 85730-TC; 86038; 86880-TC; 86886; 86900; 86901; 86920; 87040; 87081; 87086; 88307; 93306; 94010; 94760; 96361; 96374; 96375; 99285; G0378; J0131; J0330; J0690; J0696; J1170; J1885; J2001; J2175; J2250; J2270; J2370; J2405; J2765; J3010; J3420; J3490; J7050; J7060; J7120; P9021; P9034; P9046; Q9964; Q9967

== ENCOUNTER 2022-09-06 00:35 | Emergency (ER) | payer BC, OTHER ==
[~2022-09-06] VITALS: Ht 167.6 cm; Wt 94.3 kg
[~2022-09-06 00:35] MED LIST: ALBMDI INH
[2022-09-06 00:45] VITALS: BP_SYST 145
--- NOTE | 2022-09-06 01:48 | NUR ---
Patient to ER bed petit to gon for evaluation. Side rails up. Report given to Madelyn MCGRATH.
--- NOTE | 2022-09-06 01:54 | NUR ---
PT BIB PARTNER FROM HOME, AMBULATED TO H1. PT A&Ox4, ABLE TO MAKE NEEDS KNOWN. PT C/O RIGHT EAR PAIN SINCE YESTERDAY MORNING. PT STATES WAXY SUBSTANCE NOTED DRAINING FROM RIGHT EAR. PT STATES SHE FEELS SWELLING ON RIGHT SIDE AND IS UNABLE TO CLOSE MOUTH. PT RATES PAIN 10/10. PT TOOK 1000MG TYLENOL AT 1800 YESTERDAY FOR THE PAIN. PT DENIES V/D, SOB AND CHEST PAIN. PT DENIES FEVER AND CHILLS. PT IS ON ANTIDEPRESSANT MEDICATION. SAFETY MEASURES IN PLACE.
--- NOTE | 2022-09-06 02:11 | NUR ---
ER at bedside examining patient.
[2022-09-06] MEDS ORDERED: HYDROcodone/ACETAMIN 5-325 MG TAB (NORCO/ VICODIN) PO ONE (02:15)
[2022-09-06] MEDS ORDERED: ONDANSETRON 4 MG ODT TAB PO ONE (02:15)
[2022-09-06] MEDS ORDERED: IBUP-1969 PO (02:20)
[2022-09-06] MEDS ORDERED: CIPR7.5D OT (02:20)
[2022-09-06 02:59] VITALS: BP_SYST 140
--- NOTE | 2022-09-06 03:00 | NUR ---
DPatient given written and verbal discharge instructions and verbalizes understanding. ER DR MITCHELL discussed with patient the results and treatment provided. Patient in stable condition. ID arm band removed. Rx of CIPRODEX OTIC SUSPENSION AND MOTRIN given. Patient educated on pain management and to follow up with PMD. Pain Scale 2/10. Opportunity for questions provided and answered. Medication side effect fact sheet provided.
== END 2022-09-06 02:59 | disposition home or self-care (01) ==
LOC: SED 00:35
DX: H60.91 Unspecified otitis externa, right ear (principal); H92.01 Otalgia, right ear; Z79.899 Other long term (current) drug therapy
CPT/HCPCS: 99283; Q0162